=== PATIENT | male | born 1940 | race Two or more races ===

== ENCOUNTER 2017-10-14 22:54 | Inpatient (IN) | payer OTHER ==
[~2017-10-14] VITALS: Ht 172.7 cm; Wt 71.7 kg
[2017-10-14] MEDS ORDERED: AUTOPEN1 EACH PO (23:22)
[2017-10-14] MEDS ORDERED: LEVAQUIN500 MG PO (23:22)
[2017-10-14] MEDS ORDERED: VASOTEC5 MG PO (23:22)
[2017-10-14] MEDS ORDERED: COZAAR25 MG PO (23:22)
== END 2017-11-02 14:29 | disposition home health service (06) | DRG 872 ==
LOC: ER 22:54 → MEDJ 10-15 10:25 → MEDI 10-15 10:25 → MEDJ 10-15 12:19 → MEDI 10-17 11:27 → MEDJ 10-31 14:46
PROC: BW21Y0Z Computerized Tomography (CT Scan) of Abdomen and Pelvis using Other Contrast, Unenhanced and Enhanced (ICD-10-PCS; principal; 2017-10-15)
PROC: B246ZZZ Ultrasonography of Right and Left Heart (ICD-10-PCS; 2017-10-16)
PROC: 8E0ZXY6 Isolation (ICD-10-PCS; 2017-10-17)
PROC: BW21Y0Z Computerized Tomography (CT Scan) of Abdomen and Pelvis using Other Contrast, Unenhanced and Enhanced (ICD-10-PCS; 2017-10-26)
PROC: 30233N1 Transfusion of Nonautologous Red Blood Cells into Peripheral Vein, Percutaneous Approach (ICD-10-PCS; 2017-10-31)
DX: A41.51 Sepsis due to Escherichia coli [E. coli] (principal); N39.0 Urinary tract infection, site not specified; J90 Pleural effusion, not elsewhere classified; Z16.12 Extended spectrum beta lactamase (ESBL) resistance; I10 Essential (primary) hypertension; R33.8 Other retention of urine; E11.65 Type 2 diabetes mellitus with hyperglycemia; D64.89 Other specified anemias